=== PATIENT | male | born 1950 | race Caucasian/White ===

== ENCOUNTER 2019-03-10 11:20 | Inpatient (IN) | payer MEDICARE, OTHER ==
[~2019-03-10 11:20] MED LIST: ENOXAPARIN SODIUM ONE; Lantus Insulin ONE; NEURONTIN 300 MG ONE; Naprosyn 500 MG ONE; Norco 10/325 MG Tablet ONE; SENOKOT 8.6 MG ONE; ZOCOR 20MG ONE
[2019-03-10] MEDS ORDERED: Aplisol ID ONE (15:00)
[2019-03-10] MEDS ORDERED: TYLENOL 325 MG PO PRN (15:35)
[2019-03-10] MEDS: Norco 10/325 MG Tablet PO PRN ×2 (15:58→21:01)
[2019-03-10] MEDS: NovoLOG Insulin SQ SCH (17:23)
[2019-03-10] MEDS: Naprosyn 500 MG PO SCH (17:45)
[2019-03-10] MEDS ORDERED: NON-FORMULARY ITEM (Glipizide [Glipizide] 10 MG) PO SCH (22:00)
[2019-03-10] MEDS ORDERED: NAPROXEN 250 MG PO SCH (22:00)
[2019-03-10] MEDS: ENOXAPARIN SODIUM SQ SCH (23:02)
[2019-03-10] MEDS: Lantus Insulin SQ SCH (23:03)
[2019-03-10] MEDS: NEURONTIN 300 MG PO SCH (23:03)
[2019-03-10] MEDS: SENOKOT 8.6 MG PO SCH (23:03)
[2019-03-11] MEDS: Naprosyn 500 MG PO SCH ×2 (07:52→17:41)
[2019-03-11] MEDS: NovoLOG Insulin SQ SCH ×3 (07:56→17:05)
--- NOTE | 2019-03-11 08:33 | PCM.HP ---
History of Present Illness - Chief Complaint Chief Complaint: deconditioning right total knee History of Present Illness: is a 69 year old male pt of Bill Lopez NP (in [place]) with DM on insulin who is here s/p total knee replacement (by Dr. Chantel Olsen, [place] ) for rehab. He came yesterday from [facility]. His pain is 8/10 with movement but 0/10 at rest. No hx DC or CVA. PMHx cholecystectomy. 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 Pt has a1c of 6.73. Checks BS TID to QID. Sees Dr. Staton. - Review of Systems Musculoskeletal: Joint Pain Psychological: No Anxiety, No Depression, No Suicidal Ideations, No Homicidal Ideations All Other Systems: Reviewed and Negative Medications & Allergies Home Medications: Home Medication List Aspirin EC 81 mg [Ecotrin 81 mg] 81 mg PO DAILY 03/10/19 [History Confirmed 03/10/19] Cholecalciferol (Vitamin D3) [Vitamin D] 1,000 unit PO UD 03/10/19 [ History Confirmed 03/10/19] Citalopram Hydrobromide [Celexa] 40 mg PO DAILY 03/10/19 [History Confirmed ] Gabapentin [Neurontin] 300 mg PO HS 03/10/19 [History Confirmed 03/10/19] Glipizide 10 mg PO BID 03/10/19 [History Confirmed 03/10/19] Hydrocodone Bit/Acetaminophen [[place] 10-325 Tablet] 1 each PO Q4H 03/10/19 [ History Confirmed 03/10/19] Insulin Aspart [NovoLOG Insulin] 22 unit SQ AC 03/10/19 [History Confirmed 03/10/19] Insulin Glargine,Hum.rec.anlog [Lantus] 50 unit SQ HS 03/10/19 [History Confirmed 03/10/19] Levothyroxine Sodium [Synthroid] 175 mcg PO DAILY 03/10/19 [History Confirmed ] Losartan Potassium 50 mg [Cozaar 50 MG] 50 mg PO DAILY 03/10/19 [History Confirmed 03/10/19] Naproxen 250 mg PO BID 03/10/19 [History Confirmed 03/10/19] Simvastatin 20Mg [Zocor 20Mg] 20 mg PO DAILY 03/10/19 [History Confirmed ] Allergies/Adverse Reactions: Allergies Allergy/AdvReac Type Severity Reaction Status Date / Time No Known Drug Allergies Allergy Unverified 03/10/19 14:57 - Past Medical History Past Medical History: Yes Neurological History: No Pertinent History ENT History: No Pertinent History Cardiac History: Hypertension Respiratory History: Sleep Apnea Endocrine Medical History: Diabetes Type II, Hypothyroidism Musculoskelatal History: Arthritis GI Medical History: No Pertinent History History: No Pertinent History Pyscho-Social History: Depression Male Reproductive Disorders: No Pertinent History - Past Surgical History Past Surgical History: Yes Neuro Surgical History: No Pertinent History Cardiac History: No Pertinent History Respiratory Surgery: No Pertinent History GI Surgical History: Cholecystectomy Genitourinary Surgical Hx: No Pertinent History Musculskeletal Surgical Hx: Orthopedic Surgery Male Surgical History: No Pertinent History Other Surgical History: RTK 03/07/19 - Social History Smoking Status: Former smoker - Physical Exam Vital Signs: Vital Signs - 24 hr Temp Pulse Resp BP BP Pulse Ox 03/11/19 07:53 98.7 F 70 18 134/79 94 L 03/10/19 19:44 98.7 F 88 18 116/61 92 L 03/10/19 15:18 98.1 F 82 20 131/71 94 L 03/10/19 15:10 98.1 F 82 18 131/71 General Appearance: no apparent distress, alert Neurologic Exam: oriented x 3, cooperative Eye Exam: eyes nml inspection Ears, Nose, Throat Exam: moist mucous membranes Neck Exam: normal inspection, non-tender, No lymphadenopathy Respiratory Exam: normal breath sounds, lungs clear, No crackles/rales, No rhonchi, No wheezing Cardiovascular Exam: regular rate/rhythm, normal heart sounds, No murmur Gastrointestinal/Abdomen Exam: soft, normal bowel sounds, No tenderness, No distention, No mass, No guarding, No rebound Back Exam: normal inspection, No rash Extremity Exam: other (RLE dressing present, intact. scant sign of old blood. no surrounding erythema. LLE no c/d/e.) Skin Exam: normal color, warm, dry, No rash Results - Labs Lab/Micro Results: Accuchecks Date 03/11/19 Date 03/10/19 Time 07:49 Time 22:00 Accucheck Value: 129 Accucheck Value: 153 Lab Results-Last 24 Hours 03/10/19 Range/Units 18:10 Hemoglobin A1c 6.73 H (4.5-6.0) % Accuchecks Date 03/11/19 Date 03/10/19 Time 07:49 Time 22:00 Accucheck Value: 129 Accucheck Value: 153 Assessment/Plan (1) S/P total knee replacement Current Visit: Yes Status: Acute Qualifiers: Laterality: right Qualified Code(s): Z96.651 - Presence of right artificial knee joint Assessment & Plan: POD #4. Appears to be stable and doing well. There is some question of difference between his home meds and the meds he got at [place]. Code(s): Z96.659 - PRESENCE OF UNSPECIFIED ARTIFICIAL KNEE JOINT (2) Diabetes mellitus Current Visit: Yes Status: Acute Qualifiers: Diabetes mellitus type: type 2 Diabetes mellitus intermediate insulin use: with ocean transportation intermediary use Diabetes mellitus complication status: without complication Qualified Code(s): E11.9 - Type 2 diabetes mellitus without complications; Z79.4 - marine oil terminal superintendent (current) use of insulin Assessment & Plan: A1c is 6.73, so well controlled. Code(s): E11.9 - TYPE 2 DIABETES MELLITUS WITHOUT COMPLICATIONS
[2019-03-11] MEDS ORDERED: NON-FORMULARY ITEM (Levothyroxine Sodium [Synthroid] 175 MCG) PO SCH (10:00)
[2019-03-11] MEDS ORDERED: NON-FORMULARY ITEM (Citalopram Hydrobromide [Celexa] 40 MG) PO SCH (10:00)
[2019-03-11] MEDS: ceLEXa 20 MG PO SCH (10:11)
[2019-03-11] MEDS: Cozaar 50 MG PO SCH (10:11)
[2019-03-11] MEDS: ECOTRIN 81 MG PO SCH (10:12)
[2019-03-11] MEDS: SYNTHROID 100 MCG PO SCH (10:12)
[2019-03-11] MEDS: VITAMIN D PO SCH (10:12)
[2019-03-11] MEDS: SYNTHROID 75 MCG PO SCH (10:12)
[2019-03-11] MEDS: ENOXAPARIN SODIUM SQ SCH ×2 (10:15→21:38)
[2019-03-11] MEDS: Norco 10/325 MG Tablet PO PRN (10:59)
[2019-03-11] MEDS: Glucotrol 5 MG PO SCH (17:05)
[2019-03-11] MEDS: Lantus Insulin SQ SCH (21:38)
[2019-03-11] MEDS: NEURONTIN 300 MG PO SCH (21:39)
[2019-03-11] MEDS: ZOCOR 20MG PO SCH (21:39)
[2019-03-11] MEDS: SENOKOT 8.6 MG PO SCH (21:39)
[2019-03-12] MEDS: NovoLOG Insulin SQ SCH ×3 (08:06→17:25)
[2019-03-12] MEDS: Glucotrol 5 MG PO SCH ×2 (08:07→17:25)
[2019-03-12] MEDS: Naprosyn 500 MG PO SCH ×2 (08:07→17:51)
[2019-03-12] MEDS: ENOXAPARIN SODIUM SQ SCH ×2 (09:26→22:18)
[2019-03-12] MEDS: ECOTRIN 81 MG PO SCH (09:27)
[2019-03-12] MEDS: Cozaar 50 MG PO SCH (09:27)
[2019-03-12] MEDS: SYNTHROID 75 MCG PO SCH (09:27)
[2019-03-12] MEDS: SYNTHROID 100 MCG PO SCH (09:27)
[2019-03-12] MEDS: ceLEXa 20 MG PO SCH (09:27)
[2019-03-12] MEDS: Norco 10/325 MG Tablet PO PRN (11:56)
[2019-03-12] MEDS: SENOKOT 8.6 MG PO SCH (22:19)
[2019-03-12] MEDS: NEURONTIN 300 MG PO SCH (22:19)
[2019-03-12] MEDS: ZOCOR 20MG PO SCH (22:19)
[2019-03-12] MEDS: Lantus Insulin SQ SCH (22:19)
[2019-03-13] MEDS: Naprosyn 500 MG PO SCH ×2 (08:18→18:00)
[2019-03-13] MEDS: Glucotrol 5 MG PO SCH ×2 (08:18→16:52)
[2019-03-13] MEDS: NovoLOG Insulin SQ SCH ×3 (08:19→16:52)
[2019-03-13] MEDS: ceLEXa 20 MG PO SCH (11:31)
[2019-03-13] MEDS: SYNTHROID 100 MCG PO SCH (11:31)
[2019-03-13] MEDS: Cozaar 50 MG PO SCH (11:31)
[2019-03-13] MEDS: SYNTHROID 75 MCG PO SCH (11:31)
[2019-03-13] MEDS: ECOTRIN 81 MG PO SCH (11:31)
[2019-03-13] MEDS: ENOXAPARIN SODIUM SQ SCH ×2 (11:32→21:37)
[2019-03-13] MEDS: Lantus Insulin SQ SCH (21:37)
[2019-03-13] MEDS: NEURONTIN 300 MG PO SCH (21:38)
[2019-03-13] MEDS: ZOCOR 20MG PO SCH (21:38)
[2019-03-13] MEDS: SENOKOT 8.6 MG PO SCH (21:38)
[2019-03-14] MEDS: Norco 10/325 MG Tablet PO PRN ×2 (04:50→21:56)
[2019-03-14] MEDS ORDERED: Norco 10/325 MG Tablet PO PRN (07:01)
[2019-03-14] MEDS: NovoLOG Insulin SQ SCH ×3 (08:16→17:00)
[2019-03-14] MEDS: Glucotrol 5 MG PO SCH ×2 (08:16→17:00)
[2019-03-14] MEDS: Naprosyn 500 MG PO SCH ×2 (08:16→18:14)
[2019-03-14] MEDS: Cozaar 50 MG PO SCH (10:02)
[2019-03-14] MEDS: SYNTHROID 75 MCG PO SCH (10:02)
[2019-03-14] MEDS: ceLEXa 20 MG PO SCH (10:02)
[2019-03-14] MEDS: ECOTRIN 81 MG PO SCH (10:03)
[2019-03-14] MEDS: SYNTHROID 100 MCG PO SCH (10:03)
[2019-03-14] MEDS: VITAMIN D PO SCH (10:03)
[2019-03-14] MEDS: ENOXAPARIN SODIUM SQ SCH ×2 (10:14→21:56)
[2019-03-14] MEDS: ZOCOR 20MG PO SCH (21:56)
[2019-03-14] MEDS: Lantus Insulin SQ SCH (21:56)
[2019-03-14] MEDS: NEURONTIN 300 MG PO SCH (21:56)
[2019-03-14] MEDS: SENOKOT 8.6 MG PO SCH (21:56)
[2019-03-15] MEDS: Naprosyn 500 MG PO SCH ×2 (08:21→17:44)
[2019-03-15] MEDS: Glucotrol 5 MG PO SCH ×2 (08:21→16:50)
[2019-03-15] MEDS: NovoLOG Insulin SQ SCH ×3 (08:23→16:51)
[2019-03-15] MEDS: ceLEXa 20 MG PO SCH (09:58)
[2019-03-15] MEDS: Cozaar 50 MG PO SCH (09:58)
[2019-03-15] MEDS: ECOTRIN 81 MG PO SCH (09:58)
[2019-03-15] MEDS: SYNTHROID 75 MCG PO SCH (09:58)
[2019-03-15] MEDS: SYNTHROID 100 MCG PO SCH (09:58)
[2019-03-15] MEDS: ENOXAPARIN SODIUM SQ SCH ×2 (09:59→21:43)
[2019-03-15] MEDS: Norco 10/325 MG Tablet PO PRN (20:19)
[2019-03-15] MEDS: SENOKOT 8.6 MG PO SCH (21:43)
[2019-03-15] MEDS: NEURONTIN 300 MG PO SCH (21:43)
[2019-03-15] MEDS: ZOCOR 20MG PO SCH (21:43)
[2019-03-15] MEDS: Lantus Insulin SQ SCH (21:43)
[2019-03-16] MEDS: Norco 10/325 MG Tablet PO PRN ×3 (04:14→22:10)
[2019-03-16] MEDS: NovoLOG Insulin SQ SCH ×3 (08:05→16:40)
[2019-03-16] MEDS: Glucotrol 5 MG PO SCH ×2 (08:05→16:40)
[2019-03-16] MEDS: Naprosyn 500 MG PO SCH ×2 (08:05→17:20)
--- NOTE | 2019-03-16 08:09 | PCM.NOTE ---
Date and Time: 03/16/19 0804 Subjective Assessment: Pt is doing well, does have some pain this a.m. after yesterday's therapy session. Helped by po pain meds. Sonia po well. Afebrile. Having BMs. - Review of Systems Constitutional: No Fever Musculoskeletal: Joint Pain Objective Exam General Appearance: no apparent distress, alert Neurologic Exam: oriented x 3, cooperative Skin Exam: normal color, warm, dry, No rash Eye Exam: eyes nml inspection Ears, Nose, Throat Exam: moist mucous membranes Respiratory Exam: normal breath sounds, lungs clear, No crackles/rales, No rhonchi, No wheezing Cardiovascular Exam: regular rate/rhythm, normal heart sounds, No murmur Extremity Exam: other (midline wound well approximated, corinne in place, c/d/i) , No pedal edema, No swelling OBJECTIVE DATA Vital Signs: Vital Signs - 24 hr Temp Pulse Resp BP Pulse Ox 03/15/19 20:15 98.0 F 83 20 134/69 96 Pain Assessment - Last Documented Pain Intensity 8 Pain Scale Used 0-10 Pain Scale Intake and Output: Intake & Output 03/13/19 03/14/19 03/15/19 03/16/19 11:59 11:59 11:59 11:59 Intake Total 1560 1640 1670 1260 Balance 1560 1640 1670 1260 Weight 110.6 kg Lab Results: Accuchecks Date 03/15/19 Time 11:30 Accucheck Value: 173 Accucheck Value: 108 Accucheck Value: 226 Assessment/Plan (1) S/P total knee replacement Current Visit: Yes Status: Acute Qualifiers: Laterality: right Qualified Code(s): Z96.651 - Presence of right artificial knee joint Assessment & Plan: Doing great, per pt PT thought possibly end of this week, will get an update from them. Code(s): Z96.659 - PRESENCE OF UNSPECIFIED ARTIFICIAL KNEE JOINT (2) Diabetes mellitus Current Visit: Yes Status: Chronic Qualifiers: Diabetes mellitus type: type 2 Diabetes mellitus mcfp insulin use: with manager terminal use Diabetes mellitus complication status: without complication Qualified Code(s): E11.9 - Type 2 diabetes mellitus without complications; Z79.4 - rn long term care (current) use of insulin Assessment & Plan: BS mostly low-mid 100s. Code(s): E11.9 - TYPE 2 DIABETES MELLITUS WITHOUT COMPLICATIONS
[2019-03-16] MEDS: ceLEXa 20 MG PO SCH (09:55)
[2019-03-16] MEDS: VITAMIN D PO SCH (09:55)
[2019-03-16] MEDS: SYNTHROID 75 MCG PO SCH (09:56)
[2019-03-16] MEDS: ECOTRIN 81 MG PO SCH (09:56)
[2019-03-16] MEDS: SYNTHROID 100 MCG PO SCH (09:56)
[2019-03-16] MEDS: ENOXAPARIN SODIUM SQ SCH ×2 (09:56→21:57)
[2019-03-16] MEDS: Cozaar 50 MG PO SCH (09:56)
[2019-03-16] MEDS: ZOCOR 20MG PO SCH (21:56)
[2019-03-16] MEDS: SENOKOT 8.6 MG PO SCH (21:56)
[2019-03-16] MEDS: NEURONTIN 300 MG PO SCH (21:57)
[2019-03-16] MEDS: Lantus Insulin SQ SCH (21:58)
[2019-03-17] MEDS: SYNTHROID 75 MCG PO SCH (09:19)
[2019-03-17] MEDS: SYNTHROID 100 MCG PO SCH (09:19)
[2019-03-17] MEDS: Glucotrol 5 MG PO SCH ×2 (09:19→16:48)
[2019-03-17] MEDS: Naprosyn 500 MG PO SCH ×2 (09:19→18:22)
[2019-03-17] MEDS: Cozaar 50 MG PO SCH (09:20)
[2019-03-17] MEDS: ECOTRIN 81 MG PO SCH (09:20)
[2019-03-17] MEDS: NovoLOG Insulin SQ SCH ×3 (09:24→16:48)
[2019-03-17] MEDS: ceLEXa 20 MG PO SCH (09:24)
[2019-03-17] MEDS: Norco 10/325 MG Tablet PO PRN ×2 (12:26→16:52)
[2019-03-17] MEDS: ENOXAPARIN SODIUM SQ SCH (16:47)
[2019-03-17] MEDS: ZOCOR 20MG PO SCH (22:07)
[2019-03-17] MEDS: Lantus Insulin SQ SCH (22:07)
[2019-03-17] MEDS: NEURONTIN 300 MG PO SCH (22:07)
[2019-03-17] MEDS: SENOKOT 8.6 MG PO SCH (22:07)
[2019-03-18] MEDS: ENOXAPARIN SODIUM SQ SCH ×3 (04:02→22:23)
[2019-03-18] MEDS: Norco 10/325 MG Tablet PO PRN ×3 (04:15→22:24)
[2019-03-18] MEDS: NovoLOG Insulin SQ SCH ×3 (08:01→16:48)
[2019-03-18] MEDS: Glucotrol 5 MG PO SCH ×2 (08:17→16:48)
[2019-03-18] MEDS: Naprosyn 500 MG PO SCH ×2 (08:22→18:20)
--- NOTE | 2019-03-18 08:44 | PCM.NOTE ---
Date and Time: 03/18/19 0842 Subjective Assessment: Pt is still having pain in the surgical joint but it is improved with po meds. Per pt PT says he is doing well, he is just afraid of his having a hard time managing with him at home currently. Sonia po well. Having no constipation. - Review of Systems Constitutional: No Fever Musculoskeletal: Joint Pain Objective Exam General Appearance: no apparent distress, alert Neurologic Exam: oriented x 3, cooperative Skin Exam: warm, dry, other (R upper leg has circumferential purple discoloration), No rash Ears, Nose, Throat Exam: moist mucous membranes Respiratory Exam: normal breath sounds, lungs clear, No crackles/rales, No rhonchi, No wheezing Cardiovascular Exam: regular rate/rhythm, normal heart sounds, No murmur Extremity Exam: other (RLE with sock in place. bruising as noted) OBJECTIVE DATA Vital Signs: Vital Signs - 24 hr Temp Pulse Resp BP BP Pulse Ox 03/18/19 07:27 98.2 F 80 20 132/69 97 03/17/19 20:25 97.5 F 75 18 141/77 95 Pain Assessment - Last Documented Pain Intensity 5 Pain Scale Used 0-10 Pain Scale Intake and Output: Intake & Output 03/15/19 03/16/19 03/17/19 03/18/19 11:59 11:59 11:59 11:59 Intake Total 1670 1620 1160 1560 Balance 1670 1620 1160 1560 Weight 110.6 kg Lab Results: Accuchecks Date 03/17/19 Date 03/17/19 Time 16:29 Time 11:30 Accucheck Value: 251 Accucheck Value: 113 Accucheck Value: 250 Multi-Disciplinary Progress Notes: Multi-Disciplinary Progress Notes 03/17/19 14:13 Case Management Note by Betzaida Gonzalez PLANS TO RETURN HOME WITH TO PRE EPISODIC LEVELOF FNX. DENIES ADDNL NEEDS FOR DISCHARGE AT PRESENT, WILL LIKELY TRANSITION TO OUTPATIENT P.T. Initialized on 03/17/19 14:13 - END OF NOTE Assessment/Plan (1) S/P total knee replacement Current Visit: Yes Status: Acute Qualifiers: Laterality: right Qualified Code(s): Z96.651 - Presence of right artificial knee joint Assessment & Plan: Doing well, but will plan to stay over the weekend and possibly home on Thursday. 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 Code(s): E11.9 - TYPE 2 DIABETES MELLITUS WITHOUT COMPLICATIONS
[2019-03-18] MEDS: Cozaar 50 MG PO SCH (09:24)
[2019-03-18] MEDS: SYNTHROID 100 MCG PO SCH (09:24)
[2019-03-18] MEDS: SYNTHROID 75 MCG PO SCH (09:24)
[2019-03-18] MEDS: ceLEXa 20 MG PO SCH (09:24)
[2019-03-18] MEDS: ECOTRIN 81 MG PO SCH (09:25)
[2019-03-18] MEDS: VITAMIN D PO SCH (09:25)
[2019-03-18] MEDS: NEURONTIN 300 MG PO SCH (22:23)
[2019-03-18] MEDS: SENOKOT 8.6 MG PO SCH (22:23)
[2019-03-18] MEDS: ZOCOR 20MG PO SCH (22:24)
[2019-03-18] MEDS: Lantus Insulin SQ SCH (22:43)
[2019-03-19] MEDS: SYNTHROID 100 MCG PO SCH (08:25)
[2019-03-19] MEDS: SYNTHROID 75 MCG PO SCH (08:25)
[2019-03-19] MEDS: ECOTRIN 81 MG PO SCH (08:25)
[2019-03-19] MEDS: Glucotrol 5 MG PO SCH ×2 (08:25→17:02)
[2019-03-19] MEDS: Naprosyn 500 MG PO SCH ×2 (08:25→19:57)
[2019-03-19] MEDS: ceLEXa 20 MG PO SCH (08:25)
[2019-03-19] MEDS: Cozaar 50 MG PO SCH (08:25)
[2019-03-19] MEDS: NovoLOG Insulin SQ SCH ×2 (08:26→20:00)
[2019-03-19] MEDS: Miralax Powder 17GM PACKET PO SCH (10:04)
[2019-03-19] MEDS: ENOXAPARIN SODIUM SQ SCH ×2 (10:04→21:37)
[2019-03-19] MEDS: Colace 100 MG PO SCH ×2 (10:04→20:00)
[2019-03-19] MEDS: Norco 10/325 MG Tablet PO PRN (17:03)
[2019-03-19] MEDS: NEURONTIN 300 MG PO SCH (19:58)
[2019-03-19] MEDS: ZOCOR 20MG PO SCH (19:58)
[2019-03-19] MEDS: SENOKOT 8.6 MG PO SCH (19:59)
[2019-03-19] MEDS: Lantus Insulin SQ SCH (21:37)
[2019-03-20] MEDS: Norco 10/325 MG Tablet PO PRN ×4 (00:54→22:33)
[2019-03-20] MEDS: Naprosyn 500 MG PO SCH ×2 (07:24→18:30)
[2019-03-20] MEDS: Glucotrol 5 MG PO SCH ×2 (07:24→17:17)
[2019-03-20] MEDS: NovoLOG Insulin SQ SCH ×3 (07:25→17:17)
[2019-03-20] MEDS: ceLEXa 20 MG PO SCH (09:13)
[2019-03-20] MEDS: Colace 100 MG PO SCH ×2 (09:13→22:31)
[2019-03-20] MEDS: SYNTHROID 75 MCG PO SCH (09:13)
[2019-03-20] MEDS: ECOTRIN 81 MG PO SCH (09:13)
[2019-03-20] MEDS: Cozaar 50 MG PO SCH (09:13)
[2019-03-20] MEDS: SYNTHROID 100 MCG PO SCH (09:13)
[2019-03-20] MEDS: Miralax Powder 17GM PACKET PO SCH (09:23)
[2019-03-20] MEDS: ENOXAPARIN SODIUM SQ SCH ×2 (09:24→22:35)
[2019-03-20] MEDS: Lantus Insulin SQ SCH (22:32)
[2019-03-20] MEDS: NEURONTIN 300 MG PO SCH (22:32)
[2019-03-20] MEDS: SENOKOT 8.6 MG PO SCH (22:33)
[2019-03-20] MEDS: ZOCOR 20MG PO SCH (22:33)
[2019-03-21 07:53] VITALS: BP 131/75; PULSE 71; O2SAT 96
[2019-03-21] MEDS: NovoLOG Insulin SQ SCH ×2 (08:10→11:57)
[2019-03-21] MEDS: Cozaar 50 MG PO SCH (08:11)
[2019-03-21] MEDS: Miralax Powder 17GM PACKET PO SCH (08:11)
[2019-03-21] MEDS: ENOXAPARIN SODIUM SQ SCH (08:11)
[2019-03-21] MEDS: Colace 100 MG PO SCH (08:12)
[2019-03-21] MEDS: SYNTHROID 100 MCG PO SCH (08:12)
[2019-03-21] MEDS: ECOTRIN 81 MG PO SCH (08:12)
[2019-03-21] MEDS: ceLEXa 20 MG PO SCH (08:12)
[2019-03-21] MEDS: SYNTHROID 75 MCG PO SCH (08:12)
[2019-03-21] MEDS: Naprosyn 500 MG PO SCH (08:12)
[2019-03-21] MEDS: VITAMIN D PO SCH (08:12)
[2019-03-21] MEDS: Glucotrol 5 MG PO SCH (08:19)
--- NOTE | 2019-03-21 15:35 | PCM.DS ---
Discharge Summary Date of Admission: 03/10/19 15:03 Admitting Physician: DAVID SCHMITT Primary Care Provider: DAVID SCHMITT Allergies Allergies No Known Drug Allergies Allergy (Unverified 03/10/19 14:57) Hospital Summary - Hospital Course Hospital Course: Pt is a 69 yo male pt of Bill Lopez NP in [place] with DM and HTN who was admitted for therapy s/p total knee replacement on the R. Surgery done by Dr. Liya Rodríguez in [place]. His blood sugars have basically been well controlled since his stay. His A1c was < 7. He sees Dr. Staton in [place] for his diabetes. His BP were fine throughout his stay. Pt has been doing therapy and is walking well with a walker; does not need to use a walker with short distances. Pt will be discharged to home and will continue outpatient therapy. - Vitals & Intake/Output Vital Signs: Vital Signs Temperature 97.9 F 03/21/19 07:52 Pulse Rate 71 03/21/19 07:52 Respiratory Rate 18 03/21/19 07:52 Blood Pressure 131/75 03/21/19 07:52 O2 Sat by Pulse Oximetry 96 03/21/19 07:52 Intake & Output: Intake & Output 03/19/19 03/20/19 03/21/19 03/22/19 11:59 11:59 11:59 11:59 Intake Total 2219 234 8857 480 Output Total 800 Balance 745 862 0980 480 Weight 108.2 kg - Lab Lab Results-Last 24 Hrs: Accuchecks Date 03/21/1903/21/1903/20/1903/20/1903/20/19 Time 11:30 Time 07:30 Time 21:00 Time 16:30 Time 16:30 Accucheck Value: 218 Accucheck Value: 124 Accucheck Value: 113 Accucheck Value: 113 Accucheck Value: 121 Micro Results-Entire Visit: Accuchecks Date 03/21/1903/21/1903/20/1903/20/1903/20/19 Time 11:30 Time 07:30 Time 21:00 Time 16:30 Time 16:30 Accucheck Value: 218 Accucheck Value: 124 Accucheck Value: 113 Accucheck Value: 113 Accucheck Value: 121 - Procedures and Test Procedures and Tests throughout Hospitalization: Therapy Orders & Screens 03/10/19 15:00 PT Eval & Treat ( Order) ROUTINE Reason for Eval:: DECONDITIONING R/T R TKA Diagnosis: DECONDITIONING R/T R TKA Discharge Exam General Appearance: no apparent distress, alert Neurologic Exam: oriented x 3, cooperative Skin Exam: normal color, warm, dry, No rash Eye Exam: eyes nml inspection, No scleral icterus Ears, Nose, Throat Exam: moist mucous membranes, other (no difficulty hearing) Neck Exam: normal inspection, full range of motion Respiratory Exam: No respiratory distress Extremity Exam: other (bilat LE with no gross edema. Dressing present on RLE, no erythema/exudate) Final Diagnosis/Problem List - Final Discharge Diagnosis/Problem (1) S/P total knee replacement Current Visit: Yes Status: Acute Assessment & Plan: Doing great, having no issues with his therapy. D/c to home and continue outpatient therapy. Code(s): Z96.659 - PRESENCE OF UNSPECIFIED ARTIFICIAL KNEE JOINT (2) Diabetes mellitus Current Visit: Yes Status: Chronic Assessment & Plan: well controlled, doing great. Code(s): E11.9 - TYPE 2 DIABETES MELLITUS WITHOUT COMPLICATIONS (3) HTN (hypertension) Current Visit: Yes Status: Acute Assessment & Plan: doing well. Code(s): I10 - ESSENTIAL (PRIMARY) HYPERTENSION - Discharge Disposition: Home, Self-Care Condition: Good Prescriptions: New Docusate Sodium 100 mg [Colace 100 MG] 100 mg PO BID #60 capsule Hydrocodone Bit/Acetaminophen [Hydrocodon-Acetaminophen 5-325] 2 tab PO Q4- 6HPRN PRN #30 tablet PRN Reason: Pain Polyethylene Glycol 3350 17 gm [Miralax Powder 17GM PACKET] 17 gm PO DAILY PRN #10 packet PRN Reason: Constipation Continue Simvastatin 20Mg [Zocor 20Mg] 20 mg PO DAILY Glipizide 10 mg PO BID Losartan Potassium 50 mg [Cozaar 50 MG] 50 mg PO DAILY Insulin Glargine,Hum.rec.anlog [Lantus] 50 unit SQ HS Insulin Aspart [NovoLOG Insulin] 35 unit SQ AC Citalopram Hydrobromide [Celexa] 40 mg PO DAILY Gabapentin [Neurontin] 300 mg PO HS Cholecalciferol (Vitamin D3) [Vitamin D] 1,000 unit PO UD Aspirin EC 81 mg [Ecotrin 81 mg] 81 mg PO DAILY Naproxen 250 mg PO BID Levothyroxine Sodium [Synthroid] 175 mcg PO DAILY Instructions: Total Knee Replacement (DC) Additional Instructions: Follow up with outpatient Physical Therapy. Next appt made for Thursday at 11am , then Thursday at 11am. Please check with registration desk apon arrival. Follow up with: DAVID SCHMITT [Primary Care Provider] - 1 Week LIYA RODRÍGUEZ [NON-STAFF PHY W/O PRIVILEGES] - 03/21/19 10:30 am (arrive by 10: 20 a.m. ) Forms: Discharge Instructions
== END 2019-03-21 15:20 | disposition home or self-care (01) | DRG 561 ==
LOC: MED SURG 15:03
PROVIDERS: ADMIT Family Medicine; ATTEND Family Medicine
DX: Z47.1 Aftercare following joint replacement surgery (principal); Z96.651 Presence of right artificial knee joint; E11.9 Type 2 diabetes mellitus without complications; I10 Essential (primary) hypertension; Z79.899 Other long term (current) drug therapy; Z79.4 Long term (current) use of insulin; E03.9 Hypothyroidism, unspecified
CPT/HCPCS: 36415; 82962; 83036; 97014; A6457; J1650; 97110-GP; A9270-GY; G0283-GP